=== PATIENT | female | born 1985 | race Caucasian/White ===

== ENCOUNTER 2017-06-12 11:26 | Emergency (ER) | payer OTHER ==
--- NOTE | 2017-06-12 12:02 | UC ---
Respiratory Complaint HPI - HPI Summary HPI Summary: Started with ST and nasal congestion 5-6 days ago. Now "it's settled in my chest." Denies fever, but is having wheezing and trouble breathing, especially at night. Has an inhaler that she doesn't like to use because it makes her shaky and anxious. - History of Current Complaint Hx Obtained From: Patient Hx Last Menstrual Period: 05/26/17 ?: No Onset/Duration: Gradual Onset, Lasting Days Timing: Constant Severity Initially: Mild Severity Currently: Moderate Character: Cough: Productive Aggravating Factors: Deep Breaths, Recumbent Position Alleviating Factors: Upright Position Associated Signs And Symptoms: Positive: Wheezing, URI, Nasal Congestion. Negative: Fever, Chills <Dottie Clark - Last Filed: 06/12/17 12:56> <Shae Avery - Last Filed: 06/12/17 13:29> - History of Current Complaint Stated Complaint: CHEST CONGESTION Time Seen by Provider: 06/12/17 11:56 - Allergies/Home Medications Allergies/Adverse Reactions: Allergies Allergy/AdvReac Type Severity Reaction Status Date / Time No Known Allergies Allergy Verified 06/12/17 12:03 PMH/Surg Hx/FS Hx/Imm Hx Endocrine History: Thyroid Disease Respiratory History: Bronchitis - "lots as a child" Other Cancer History: cervical dysplasia - Surgical History Surgical History: None Other Surgical History: cholecystectomy - Family History Known Family History: Positive: Hypertension, Respiratory Disease - Social History Alcohol Use: Occasionally Substance Use Type: None Smoking Status (MU): Never Smoked Tobacco <Dottie Clark - Last Filed: 06/12/17 12:56> Review of Systems Constitutional: Fatigue Skin: Negative Eyes: Negative ENT: Sore Throat, Ear Ache, Nasal Discharge, Sinus Congestion Respiratory: Shortness Of Breath, Cough Cardiovascular: Negative Gastrointestinal: Negative Genitourinary: Negative Motor: Negative Neurovascular: Negative Musculoskeletal: Negative Neurological: Negative Psychological: Negative Is Patient Immunocompromised?: No All Other Systems Reviewed And Are Negative: Yes <Dottie Clark - Last Filed: 06/12/17 12:56> Physical Exam Triage Information Reviewed: Yes Appearance: Well-Appearing, Obese Vital Signs Reviewed: Yes Eye Exam: Normal, Other - PERRL Eyes: Positive: Conjunctiva Clear ENT: Positive: Pharynx normal, Nasal congestion. Negative: Tonsillar swelling, Tonsillar exudate Dental: Positive: Gross Decay/Caries @ - diffuse Neck exam: Normal Respiratory Exam: Other - pat cough Respiratory: Positive: No accessory muscle use, Wheezing Cardiovascular Exam: Normal Cardiovascular: Positive: RRR, No Murmur Musculoskeletal Exam: Normal Neurological Exam: Normal Neurological: Positive: Alert Psychological Exam: Normal Skin Exam: Normal <Dottie Clark - Last Filed: 06/12/17 12:56> Vital Signs: Initial Vital Signs Temp 98.3 F 06/12/17 11:59 Pulse 79 06/12/17 11:59 Resp 18 06/12/17 11:59 BP 124/84 06/12/17 11:59 Pulse Ox 99 06/12/17 11:59 <Shae Avery - Last Filed: 06/12/17 13:29> Respiratory Course/Dx - Differential Dx/Diagnosis Provider Diagnoses: URI, likely viral. bronchospasm <Dottie Clark - Last Filed: 06/12/17 12:56> Discharge <Dottie Clark - Last Filed: 06/12/17 12:56> <Shae Avery - Last Filed: 06/12/17 13:29> - Discharge Plan Condition: Stable Disposition: HOME Prescriptions: Acetaminop/Codeine 30 MG TAB* [Tylenol/Codeine 30 MG TAB*] 1 - 2 tab PO BEDTIME PRN #10 tab MDD 2 PRN Reason: Cough Albuterol HFA INHALER* [Ventolin HFA Inhaler*] 1 - 2 puff INH Q4H PRN #1 mdi PRN Reason: wheeze, cough Benzonatate CAP* [Tessalon CAP*] 100 mg PO TID PRN #30 cap PRN Reason: Cough Patient Education Materials: Upper Respiratory Infection (ED), Bronchospasm (ED ) Forms: *Work Release Referrals: Ashley Helms NP [Primary Care Provider] - Additional Instructions: As we discussed, the most short-acting medicine that is least likely to cause problems with your anxiety is the albuterol inhaler. Please use your spacer and rinse your mouth out with water (including gargling) afterward. Wait at least 2 minutes before using a second dose to see if you feel the need for more medicine. We can prescribe nebulizers or prednisone if needed, but these usually cause more heart palpitations and jitteriness. Call or return if you develop increasing fever, shortness of breath, chest pain , bloody sputum, or otherwise worsen. If you have not improved at all after several days, contact your primary care physician or return here. Attestation Statement User Type: Provider - I was available for consult. This patient was seen by the AYDEE. The patient was not presented to, seen by, or examined by me. -Arminda <Shae Avery - Last Filed: 06/12/17 13:29>
[2017-06-12 12:03] VITALS: BP 124/84
== END 2017-06-12 13:33 | disposition home or self-care (01) ==
LOC: UCEAST 11:26
DX: J06.9 Acute upper respiratory infection, unspecified (principal)
CPT/HCPCS: 99212; G0463

== ENCOUNTER 2018-09-01 08:28 | Emergency (ER) | payer OTHER ==
--- NOTE | 2018-09-01 08:45 | ED ---
Influenza-Like Illness - HPI Summary HPI Summary: A 32 y/o female accompanied by her daughter c/o flu-like symptoms. Currently, the patient has been experiencing flu-like for the past 3 days, reports no pain. As per triage, "cold symptoms for three days. head congestion, dry cough, pain in chest with coughing". According to the patient, she initially had a scratchy throat, but then became stuffed up. Last night, she then felt "needles " in her chest. Regardless, she went to bed, however, when she woke up this AM her chest hurts when she cough. She denies any flem with cough, however, she did see a very tiny amount of green flem this AM. Patient noted that she is otherwise healthy and have no other concerns at this time. She additionally noted that she has really bad anxiety and tends to panic when trying new medications. Also she cannot swallow pills. No known allergies at this time. No PMHx of asthma or COPD. SHx of former smoker (quit in 2003), no ETOH, no recreational drugs. 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 - History of Current Complaint Chief Complaint: EDFluSymptoms Time Seen by Provider: 09/01/18 08:35 Hx Obtained From: Patient Onset/Duration: Sudden Onset, Lasting Days, Still Present Associated Signs & Symptoms: Cough, Sore Throat - Scratchy throat - Allergy/Home Medications Allergies/Adverse Reactions: Allergies Allergy/AdvReac Type Severity Reaction Status Date / Time No Known Allergies Allergy Verified 09/01/18 08:32 PMH/Surg Hx/FS Hx/Imm Hx Endocrine/Hematology History: Reports: Hx Thyroid Disease - Nodules Denies: Hx Diabetes Cardiovascular History: Denies: Hx Hypertension Respiratory History: Denies: Hx Asthma, Hx Chronic Obstructive Pulmonary Disease (COPD) GI History: Denies: Hx Ulcer - Surgical History Surgery Procedure, Year, and Place: Gallbladder Infectious Disease History: No Infectious Disease History: Denies: Hx Clostridium Difficile, Hx Hepatitis, Hx Human Immunodeficiency Virus (HIV), Hx of Known/Suspected MRSA, Hx Shingles, Hx Tuberculosis, Hx Known/ Suspected VRE, Hx Known/Suspected VRSA, History Other Infectious Disease, Traveled Outside the [place] in Last 30 Days - Family History Known Family History: Positive: Hypertension, Respiratory Disease - Social History Alcohol Use: None Substance Use Type: Reports: None Smoking Status (MU): Never Smoked Tobacco Type: Cigarettes Review of Systems Positive: Other - POSITIVE: CONGESTION. Negative: Fever Positive: Sore Throat - SCRATCHY THROAT, Other - POSITIVE: STUFFED UP NOSE Positive: Cough - DRY All Other Systems Reviewed And Are Negative: Yes Physical Exam - Summary Physical Exam Summary: GENERAL: Patient is a well-developed and nourished female who is lying comfortable in the stretcher. Patient is not in any acute respiratory distress. HEAD AND FACE: Normocephalic EYES: PERRLA, EOMI x 2. EARS: Hearing grossly intact. MOUTH: Oropharynx within normal limits. EENT: Patient is congested NECK: Supple, trachea is midline, no adenopathy, no JVD, no carotid bruit. CHEST: Symmetric, no tenderness at palpation LUNGS: Clear to auscultation bilaterally. No wheezing or crackles. CVS: Regular rate and rhythm, S1 and S2 present, no murmurs or gallops appreciated. ABDOMEN: Soft, non-tender. Bowel sounds are normal. No abdominal abnormal pulsations. EXTREMITIES: Full ROM in all major joints, no edema, no cyanosis or clubbing. NEURO: Alert and oriented x 3. No acute neurological deficits. Speech is normal and follows commands. SKIN: Dry and warm Triage Information Reviewed: Yes Vital Signs On Initial Exam: Initial Vitals Temp Pulse Resp BP Pulse Ox 97 F 80 16 143/85 99 18 08:29 1218 08:29 1218 08:29 1218 08:29 18 08:29 Vital Signs Reviewed: Yes Diagnostics - Vital Signs Vital Signs Temp Pulse Resp BP Pulse Ox 09/01/18 08:29 97 F 80 16 143/85 99 - Laboratory Lab Statement: Any lab studies that have been ordered have been reviewed, and results considered in the medical decision making process. - Radiology CXR Radiology Interpretation Completed By: Radiologist - No radiographic evidence of acute cardiopulmonary disease. ED PHYSICIAN REVIEWED THIS RADIOLOGY REPORT. Flu Symptom Course/Dx - Course Course Of Treatment: A 32 y/o female accompanied by her daughter c/o flu-like symptoms. Currently, the patient has been experiencing flu-like for the past 3 days, reports no pain. According to the patient, she initially had a scratchy throat, but then became stuffed up. Last night, she then felt "needles" in her chest. Regardless, she went to bed, however, when she woke up this AM her chest hurts when she cough. She denies any flem with cough, however, she did see a very tiny amount of green flem this AM. Patient noted that she is otherwise healthy and have no other concerns at this time. 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 Physical examination revealed patient is congested. A CXR revealed no radiographic evidence of acute cardiopulmonary disease. No hematology was done. In the ED course, the patient received no medications. Patient will be discharged with a diagnosis of bronchitis. Patient will be sent home with a prescription for Azithromycin and is to take medication as prescribed. Patient is to follow up with primary care provider in 1-3 days. Patient is to return to the ED for any new or worsening symptoms. Patient is agreeable with this plan. I discussed results with patient and she reports feeling better. She is hemodynamically stable and safe for discharge. Strict return precautions given and she will otherwise follow up with her PCP. - Diagnoses Provider Diagnoses: Bronchitis Discharge - Sign-Out/Discharge Documenting (check all that apply): Patient Departure - DISCHARGE - Discharge Plan Condition: Stable Disposition: HOME Prescriptions: Azithromycin 100 MG/5 ML SUSP* [Zithromax SUSP* 100 MG/5 ML] 500 mg PO DAILY # 125 ml Patient Education Materials: Acute Bronchitis (ED) Referrals: Ashley Helms NP [Primary Care Provider] - 3 Days Additional Instructions: FOLLOW UP WITH PRIMARY CARE PROVIDER IN 1-3 DAYS. TAKE MEDICATION PRESCRIBED. RETURN TO ED FOR ANY NEW OR WORSENING SYMPTOMS. - Billing Disposition and Condition Condition: STABLE Disposition: Home - Attestation Statements Document Initiated by Jorge: Yes Documenting Scribe: Luis Antonio Del Rio Provider For Whom Jorge is Documenting (Include Credential): Luis Manuel Dave MD [employer]rib[employer] Attestation: Luis Antonio Munoz scribed for Luis Manuel Dave MD on 09/01/18 at 1222. Scribe Documentation Reviewed: Yes Provider Attestation: The documentation as recorded by the Luis Antonio everett accurately reflects the service I personally performed and the decisions made by me, Luis Manuel Dave MD Status of Scribe Document: Viewed
[2018-09-01 10:56] VITALS: BP 135/94
== END 2018-09-01 10:55 | disposition home or self-care (01) ==
LOC: ED 08:28
DX: J40 Bronchitis, not specified as acute or chronic (principal)
CPT/HCPCS: 71046; 99282

== ENCOUNTER 2019-04-01 13:27 | Emergency (ER) | payer OTHER ==
[2019-04-01] MEDS ORDERED: PENICILLIN VK PO ONE (13:42)
[2019-04-01] MEDS ORDERED: ORALSYR PO ONE (13:42)
[2019-04-01] MEDS ORDERED: Ibuprofen ADULT LIQ* 600 MG/30 ML UDC PO PRN (13:42)
--- NOTE | 2019-04-01 13:47 | ED ---
Complex/Multi-Sys Presentation - HPI Summary HPI Summary: Patient is a 33 y/o F presenting to ED with complaints of broken tooth at left lower jaw. Tooth was broken a few days ago, patient reports associated pain. She is concerned for infection, fever is denied. Patient states that she goes to [place] for her dentistry but notes that there is not an appointment available until the end of March 2019. Patient has been taking 800 mg ibuprofen every six hours for pain but states that she has recently run out of this medication. She has been gurgling salt water as well. She states that the last time she had a broken tooth, she was given ibuprofen 800 mg and liquid penicillin, which she notes was effective. PMHx of anxiety, thyroid disease. Pt does not report any chills, erythema of eyes, sore throat, CP, SOB, cough, abdominal pain, N/V, dysuria, hematuria, myalgia, edema, rash, or dizziness. On triage, pain is rated 6/10. Nothing is noted to aggravate/alleviate Sx. Home medications and allergies are reviewed. - History Of Current Complaint Chief Complaint: EDDentalPain Time Seen by Provider: 04/01/19 13:38 Hx Obtained From: Patient Onset/Duration: Lasting Days, Still Present Timing: Constant, Hours Severity Currently: Moderate Location: Pain At: - broken tooth at left lower jaw Aggravating Factor(s): ibuprofen, gargling salt water Alleviating Factor(s): nothing Associated Signs And Symptoms: Positive: Other - positive - broken tooth at left lower jaw; negative - chills, erythema of eyes, sore throat, hematuria, myalgia, rash. Negative: Dizziness, SOB, Cough, Chest Pain, Edema, Nausea, Vomiting, Abdominal Pain, Dysuria, Fever - Allergies/Home Medications Allergies/Adverse Reactions: Allergies Allergy/AdvReac Type Severity Reaction Status Date / Time No Known Allergies Allergy Verified 04/01/19 13:33 PMH/Surg Hx/FS Hx/Imm Hx Endocrine/Hematology History: Reports: Hx Thyroid Disease - Nodules Denies: Hx Diabetes Cardiovascular History: Denies: Hx Hypertension Respiratory History: Denies: Hx Asthma, Hx Chronic Obstructive Pulmonary Disease (COPD) GI History: Denies: Hx Ulcer Psychiatric History: Reports: Hx Anxiety - Surgical History Surgery Procedure, Year, and Place: Gallbladder Infectious Disease History: No Infectious Disease History: Denies: Hx Clostridium Difficile, Hx Hepatitis, Hx Human Immunodeficiency Virus (HIV), Hx of Known/Suspected MRSA, Hx Shingles, Hx Tuberculosis, Hx Known/ Suspected VRE, Hx Known/Suspected VRSA, History Other Infectious Disease, Traveled Outside the [place] in Last 30 Days - Family History Known Family History: Positive: Hypertension, Respiratory Disease - Social History Alcohol Use: None Substance Use Type: Reports: None Smoking Status (MU): Never Smoked Tobacco Type: Cigarettes Review of Systems Negative: Fever, Chills Negative: Erythema Positive: Dental Pain - left lower broken tooth . Negative: Sore Throat Negative: Chest Pain Negative: Shortness Of Breath, Cough Negative: Abdominal Pain, Vomiting, Nausea Negative: dysuria, hematuria Negative: Myalgia, Edema Negative: Rash Neurological: Other - negative - dizziness All Other Systems Reviewed And Are Negative: Yes Physical Exam - Summary Physical Exam Summary: Constitutional: Well-developed, Well-nourished, Alert. (-) Distressed Skin: Warm, Dry HENT: Normocephalic; Atraumatic; left lower first molar is decayed through enamel on lateral aspect Eyes: Conjunctiva normal Neck: Musculoskeletal ROM normal neck. (-) JVD, (-) Stridor, (-) Tracheal deviation Cardio: Rhythm regular, rate normal, Heart sounds normal; Intact distal pulses; The pedal pulses are 2+ and symmetric. Radial pulses are 2+ and symmetric. (-) Murmur Pulmonary/Chest wall: Effort normal. (-) Respiratory distress, (-) Wheezes, (-) Rales Abd: Soft, (-) tenderness, (-) Distension, (-) Guarding, (-) Rebound Musculoskeletal: (-) Edema Lymph: (-) Cervical adenopathy Neuro: Alert, Oriented x3 Psych: Mood and affect Normal Triage Information Reviewed: Yes Vital Signs On Initial Exam: Initial Vitals Temp Pulse Resp BP Pulse Ox 97.8 F 94 16 148/97 100 04/01/19 13:31 04/01/19 13:31 04/01/19 13:31 04/01/19 13:31 04/01/19 13:31 Vital Signs Reviewed: Yes Diagnostics - Vital Signs Vital Signs Temp Pulse Resp BP Pulse Ox 04/01/19 13:31 97.8 F 94 16 148/97 100 - Laboratory Lab Statement: Any lab studies that have been ordered have been reviewed, and results considered in the medical decision making process. Complex Multi-Symp Course/Dx Course Of Treatment: Patient is a 33 y/o F presenting to ED with complaints of broken tooth at left lower jaw. Tooth was broken a few days ago, patient reports associated pain. She is concerned for infection, fever is denied. Patient has been taking 800 mg ibuprofen every six hours for pain but states that she has recently run out of this medication. She has been gurgling salt water as well. She states that the last time she had a broken tooth, she was given ibuprofen 800 mg and liquid penicillin, which she notes was effective. On physical exam, left lower first molar is decayed through enamel on lateral aspect. During ED course, patient received ibuprofen 800 mg PO and Penicillin 500 mg PO. Patient was discharged to home with denistry and PCP follow up. Strict return precautions given. Patient is agreeable with this plan. - Diagnoses Provider Diagnoses: Dental decay Discharge - Sign-Out/Discharge Documenting (check all that apply): Patient Departure - discharge Patient Received Moderate/Deep Sedation with Procedure: No - Discharge Plan Condition: Stable Disposition: HOME Prescriptions: Ibuprofen ADULT LIQ* [Motrin LIQ ADULT*] 800 mg PO TID #1 udc Penicillin VK* LIQ* [Penicillin VK 250 MG/5 ML* LIQ*] 500 mg PO QID #1 btl Patient Education Materials: Toothache (ED) Referrals: Ashley Helms, [facility] [Nurse Practitioner] - 3 Days Additional Instructions: WE HAVE GIVEN YOU THE CONTACT INFORMATION FOR VARIOUS DENTAL PLACES THAT YOU CAN FOLLOW UP WITH. CONTINUE TO GARGLE SALT WATER. APPLY A TEA BAG TO AFFLICTED AREA. FOLLOW UP WITH YOUR PRIMARY CARE PHYSICIAN AND DENTIST WITHIN FIVE DAYS. RETURN TO ED FOR ANY NEW OR WORSENING SYMPTOMS. - Attestation Statements Document Initiated by Scribe: Yes Documenting Scribe: ALLYSON HOLGUIN Provider For Whom Jesikaibe is Documenting (Include Credential): ONOFRE YUNG MD Scribe Attestation: ALLYSON Munoz, scribed for ONOFRE YUNG MD on 04/01/19 at 1433. Status of Scribe Document: Ready
[2019-04-01 14:06] VITALS: BP 139/87
== END 2019-04-01 14:05 | disposition home or self-care (01) ==
LOC: ED 13:27
DX: K02.9 Dental caries, unspecified (principal)
CPT/HCPCS: 99282; A9270-GY

== ENCOUNTER 2019-04-03 17:42 | Emergency (ER) | payer OTHER ==
--- NOTE | 2019-04-03 20:36 | UC ---
Dental HPI - HPI Summary HPI Summary: 33 y/o female presents to the urgent care c/o fracture molar in her left lower jaw for the past 2 days. Pt reports she was seen at the [place] [facility] on 04/01/2019 and Dx w/ Dental abscess and Rx Penicillin PO and Ibuprofen PO to alleviate symptoms. Pt states pain is not improving and she has swelling around her left jaw. Pt took Ibuprofen PO 800mg PO around 1900PM. Pain now is 5/10. She wants to alternate w/ Tylenol PO but she doesn't know how. She can't take pain killer since she gets palpitations and makes her feel very dizzy. Pt was able to get an appt w/ a dentist at the beginning of 04/2019. Pt states she take a BP medication that also helps her for her anxiety, but she hasn't taken for a few days. Pt states her BP is usually very high when she goes to the doctor and her PCP is aware of that. Pt denies BELLAMY, visual changes, fever, dizziness, SOB, chest pain, abdominal pain, N/V/D, trismus. - History of Current Complaint Chief Complaint: UCDentalProblem Stated Complaint: TOOTH PAIN Time Seen by Provider: 04/03/19 20:25 Hx Obtained From: Patient Hx Last Menstrual Period: unknown Onset/Duration: Gradual Onset, Lasting Days - 2 days Severity: Moderate Pain Intensity: 5 Pain Scale Used: 0-10 Numeric Aggravating Factor(s): Chewing Alleviating Factor(s): OTC Meds - Allergies/Home Medications Allergies/Adverse Reactions: Allergies Allergy/AdvReac Type Severity Reaction Status Date / Time No Known Allergies Allergy Verified 04/03/19 18:33 PMH/Surg Hx/FS Hx/Imm Hx Previously Healthy: Yes Cardiovascular History: Hypertension Psychological History: Anxiety - Surgical History Surgical History: Yes Surgery Procedure, Year, and Place: Gallbladder Other Surgical History: cholecystectomy - Family History Known Family History: Positive: Hypertension, Respiratory Disease - Social History Occupation: Employed Full-time Lives: With Family Alcohol Use: None Substance Use Type: None Smoking Status (MU): Never Smoked Tobacco Type: Cigarettes When Did the Patient Quit Smoking/Using Tobacco: 2013 Review of Systems All Other Systems Reviewed And Are Negative: Yes Constitutional: Positive: Negative Skin: Positive: Negative Eyes: Positive: Negative ENT: Positive: Dental Pain - left lwoer jaw pain w/ swelling Respiratory: Positive: Negative Cardiovascular: Positive: Negative Gastrointestinal: Positive: Negative Genitourinary: Positive: Negative Motor: Positive: Negative Neurovascular: Positive: Negative Musculoskeletal: Positive: Negative Neurological: Positive: Negative Psychological: Positive: Negative Is Patient Immunocompromised?: No Physical Exam - Summary Physical Exam Summary: Vital Signs Reviewed: Yes General: Well-Appearing, Well-Nourished obese female sitting in the examining table w/o any respiratory or pain distress Eyes: Positive: Conjunctiva Clear - PERRLA, EOMI, ENT: Positive: Normal ENT inspection, Hearing grossly normal, Pharynx normal, TMs normal - B/L external ear canals clear,. Negative: Tonsillar swelling, Tonsillar exudate, Trismus Dental: Positive: Gross Decay and fracture molar#18 and 19 w/ gingival swelling and erythema, tender to percussion. involves tissue surrounding theses molars, w / positive anterior Cervical Lymphadenopathy. Neck: Positive: Supple Respiratory: Positive: Chest non-tender, Lungs clear, Normal breath sounds, No respiratory distress Cardiovascular: Positive: RRR, No Murmur, Pulses Normal, Brisk Capillary Refill Abdomen Description: Positive: Nontender, No Organomegaly, Soft. Negative: CVA Tenderness (R), CVA Tenderness (L) Bowel Sounds: Positive: Present Musculoskeletal: Positive: Strength Intact, ROM Intact, No Edema Neurological Exam: Normal Psychological Exam: Normal Skin Exam: Normal Triage Information Reviewed: Yes Vital Signs: Initial Vital Signs Temp 98.3 F 04/03/19 18:28 Pulse 84 04/03/19 18:28 Resp 16 04/03/19 18:28 BP 168/108 04/03/19 18:28 Pulse Ox 100 04/03/19 18:28 Dental Complaint Course/Dx - Course Course Of Treatment: 33 y/o female presents to the urgent care c/o fracture molar in her left lower jaw for the past 2 days. Pt reports she was seen at the [place] ER on 04/01/2019 and Dx w/ Dental abscess and Rx Penicillin PO and Ibuprofen PO to alleviate symptoms. Pt states pain is not improving and she has swelling around her left jaw. Pt took Ibuprofen PO 800mg PO around 1900PM. Pain now is 5/10. She wants to alternate w/ Tylenol PO but she doesn't know how. She can't take pain killer since she gets palpitations and makes her feel very dizzy. Pt was able to get an appt w/ a dentist at the beginning of 04/2019. Pt states she take a BP medication that also helps her for her anxiety, but she hasn't taken for a few days. Pt states her BP is usually very high when she goes to the doctor and her PCP is aware of that. Pt denies BELLAMY, visual changes, fever, dizziness, SOB, chest pain, abdominal pain, N/V/D, trismus. Hx obtained. Pt with dental abscess around molar #18 and 19 w/ gross decay on examination. Pt already seen 2 days ago at the [facility] ER and Rx Penicillin liquid and Ibuprofen PO. Pt explained she needs to keep taking antibiotic to allow it to work. Educated in how to alternate w/ Tylenol and ibuprofen PO for pain. She denies [place] since she get palpitations w/ it. She also declined Viscous lidocaine. Pt Rx Chlorhexidiene Mouth wash to alleviate symptoms. Pt strongly advised to f/u with Dentist as soon as possible for further evaluation and treatment. Pt's BP is elevated today strongly advised to go to the ER if she develops BELLAMY, dizziness,visual changes, chest pain, SOB or palpitations. Pt educated on HTN and advised to decrease salt in diet, monitor BP and f/u with PCP in 2-3 days for further management in her BP. D/C instructions explained. Pt understood and agreed with plan of care. Pt left clinic Hemodynamically stable. A&OX3. - Differential Dx/Diagnosis Differential Diagnosis/Dx: Dental Caries, Fractured Tooth, Odontogenic Pain, Peridontic Disease, Peritonsillar Abcess Provider Diagnosis: Dental abscess, Pain, dental, Uncontrolled hypertension Discharge - Sign-Out/Discharge Documenting (check all that apply): Patient Departure - d/c home All imaging exams completed and their final reports reviewed: No Studies - Discharge Plan Condition: Stable Disposition: HOME Prescriptions: Chlorhexidine MOUTHWASH 0.12%* [Peridex Mouth Wash 0.12%*] 15 ml MT BID #1 btl Patient Education Materials: Dental Abscess (ED) Referrals: Lupis García MD [Primary Care Provider] - 2 Days Additional Instructions: 1-Please continue taken Penicillin as directed, you have only taken the antibiotic for 48hrs. . 2-continue taken Ibuprofen PO q6-8hrs after meals and in between you can alternate w/ Tylenol 500mg PO to alleviate pain and swelling. 3- F/u with your Dentist or Dental List provided as soon as possible for further treatment. 4- If symptoms worsen and you develop fever despite taken antibiotics please go inmediately to the ?Er for further management. 5-Your BP is elevated today. Please take your BP medications and decrease salt in your diet, monitor BP and if it continues to be elevated please f/u with your PCP for further management. If you develop chest pain, dizziness, visual disturbances, SOB, or severe BELLAMY please go immediately to the ER for further management - Billing Disposition and Condition Condition: STABLE Disposition: Home
[2019-04-03 21:18] VITALS: BP 144/116
== END 2019-04-03 21:20 | disposition home or self-care (01) ==
LOC: UCEAST 17:42
DX: K04.7 Periapical abscess without sinus (principal); I10 Essential (primary) hypertension; F41.9 Anxiety disorder, unspecified
CPT/HCPCS: 99212; G0463